=== PATIENT | female | born 1950 | race Caucasian/White ===

== ENCOUNTER 2017-12-09 11:48 | Emergency (ER) | payer MEDICARE ==
[~2017-12-09] VITALS: Ht 154.9 cm; Wt 44.5 kg
--- NOTE | 2017-12-09 14:57 | Diagnostic Imaging Report ---
PROCEDURE:FOOT LEFT COMPLETE TECHNIQUE:AP, lateral and oblique views left foot INDICATION:Left foot pain; swelling COMPARISON:None. FINDINGS: The left abdomen and regional skeleton are intact and in anatomic alignment. Joint spaces preserved. No erosion or periosteal reaction. Intact soft tissues. No foreign bodies. CONCLUSION: No evidence of fracture, malalignment or osteomyelitis. Dictated by: Steve York M.D. on 12/09/2017 at 15:05 Electronically approved by: Steve oYrk M.D. on 12/09/2017 at 15:05
[2017-12-09 19:08] VITALS: BP 142/65
== END 2017-12-09 19:18 | disposition home or self-care (01) ==
LOC: ER 11:48
DX: M79.672 Pain in left foot (principal); E11.9 Type 2 diabetes mellitus without complications
CPT/HCPCS: 99283